=== PATIENT | male | born 2005 | race African-American/Black ===

== ENCOUNTER 2024-02-07 10:07 | Emergency (ER) | payer OTHER ==
[~2024-02-07] VITALS: Ht 177.8 cm; Wt 61.4 kg
[2024-02-07 10:29] VITALS: BP 140/90; PULSE 71; RESP 18; TEMP 98.3; O2SAT 99
[2024-02-07] MEDS ORDERED: AMOX-457 PO (14:03)
== END 2024-02-07 14:14 | disposition home or self-care (01) ==
LOC: EMS 10:10
DX: S02.2XXA Fracture of nasal bones, initial encounter for closed fracture (principal); S00.81XA Abrasion of other part of head, initial encounter; S03.2XXA Dislocation of tooth, initial encounter; J45.909 Unspecified asthma, uncomplicated; W22.8XXA Striking against or struck by other objects, initial encounter; Y93.89 Activity, other specified; Y92.89 Other specified places as the place of occurrence of the external cause; Y99.0 Civilian activity done for income or pay
CPT/HCPCS: 70486; 99284; Z7502